=== PATIENT | female | born 1955 | race Caucasian/White ===

== ENCOUNTER 2017-04-24 10:31 | Day surgery (SDC) | payer BC ==
[2017-04-16 17:13] VITALS: BMI 27.3
[2017-04-24] MEDS ORDERED: BUPIVACAINE HCL/PF 0.5% (5MG/ML) 10 ML VIAL ONE (12:10)
[2017-04-24] MEDS ORDERED: LIDOCAINE HCL 1%, 10 MG/ML (20ML VIAL) ONE (12:10)
[2017-04-24] MEDS ORDERED: MIDAZOLAM HCL 2 MG/2 ML SINGLE DOSE VIAL ONE ×3 (12:12→12:39)
[2017-04-24] MEDS ORDERED: DEXAMETHASONE SOD PHOSPHATE 4 MG/1 ML VIAL ONE (12:32)
[2017-04-24] MEDS ORDERED: fentaNYL CITRATE 250 MCG/5 ML VIAL ONE (12:32)
[2017-04-24] MEDS ORDERED: ONDANSETRON 4 MG/2 ML VIAL ONE (12:32)
[2017-04-24] MEDS ORDERED: PROPOFOL 20 ML ONE ×2 (12:48→12:56)
[2017-04-24] MEDS ORDERED: SUCCINYLCHOLINE CHLORIDE 200 MG/10 ML VIAL ONE (12:48)
[2017-04-24] MEDS ORDERED: oxyCODONE HCL 5 MG TABLET PO PRN ×2 (13:21)
[2017-04-24] MEDS ORDERED: ONDANSETRON 4 MG/2 ML VIAL IVPUSH PRN (13:21)
[2017-04-24] MEDS ORDERED: LACTATED RINGERS SOLUTION 1,000 ML IV SCH (13:30)
[2017-04-24 14:57] VITALS: TEMP 97.9
[2017-04-24 15:47] VITALS: BP 124/79; PULSE 74
--- NOTE | 2017-04-26 07:19 | OP ---
DATE OF OPERATION: 04/24/2017 SURGEON: Nas Becerril DPM FIELD WORKER: Dr. Lisa Francis PREOPERATIVE DIAGNOSIS: Right foot painful bunion deformity. PROCEDURE: Right foot cheilectomy, bunionectomy procedure. ANESTHESIA: MAC and local. HEMOSTASIS: Pneumatic ankle tourniquet 250 mmHg for 45 minutes. ESTIMATED BLOOD LOSS: 5 mL. MATERIALS: 3-0 Vicryl, 4-0 Vicryl, 4-0 nylon. INJECTABLES: Preoperative: 16 mL of 1:1 mixture of lidocaine 1% plain and 0.5% Marcaine plain. Postoperative: 5 mL of 0.5% Marcaine and 1 mL of 4 mg dexamethasone. CONDITION: Stable. COMPLICATIONS: None. PROCEDURE: The patient was brought to the operating room and placed supine on operating room table. After adequate IV sedation and local infiltrative block was administered to the right foot utilizing 1:1 mixture of 1% lidocaine plain and 0.5% Marcaine plain with a total of 16 mL used. The right foot was then prepped, draped in the usual aseptic manner. Upon exsanguination of right foot, the Esmarch bandage was then placed with padding at the ankle. The pneumatic ankle tourniquet was inflated to 250 mmHg. Surgery began in the following manner: Attention was directed to the dorsal aspect of 1st metatarsophalangeal joint of the right foot, where a linear incision was made from the base of the proximal phalanx of the right hallux to the midshaft to the 1st metatarsal using blade number 15 of approximately 4 cm in length. The incision was deepened through subcutaneous tissue using sharp and blunt dissection. Care was taken to identify and retract all vital neural and vascular structures. Next, using blade number 15, a linear capsulotomy was performed at the dorsal aspect of 1st metatarsophalangeal joint. The periosteal and capsular structures were then carefully dissected free of the osseous attachment and reflected dorsally and plantarly, exposing the head of the 1st metatarsal and dorsal eminence visualized. The head of the metatarsal was hypertrophied significantly on dorsal aspect; however, the articular surface of the joint seemed well intact and healthy. Next, utilizing sagittal bone saw, the dorsal and medial prominences were resected and pulled from the operating table. Attention directed to the dorsal aspect of the 1st metatarsal head, where the dorsal eminence was resected using sagittal bone saw, and rotatory bur was then used to smoothen the surgical site at dorsal and medial aspects of metatarsal head. At this time, the range of motion of the 1st metatarsophalangeal joint assessed and significant improvement noted. At this time, the capsular structures were reapproximated using 3-0 Vicryl suture and rest of capsular structures were closed in a buried suture technique, and the subcutaneous layers were reapproximated using 3-0 Vicryl suture. The skin was reapproximated with a 4-0 nylon interruped horizontal mattress sutures. After completion of procedure, 4 mL of 0.5% Marcaine and 1 mL of 4 mg dexamethasone was infiltrated about the incision site. The incision was dressed with Adaptic and covered with sterile dressing of Xeroform, 4 x 4 surgical gauze , Bandar and Sy wrap. The pneumatic ankle tourniquet was then deflated, and prompt hyperemic response was noted to all digits of the right foot. The patient tolerated the procedure well and anesthesia well, and was transferred to the PACU and recovery room with all neurovascular structures intact to the right foot. Attending was present during entire time of surgery. VU GUAJARDO/[id number] SUSAN
--- NOTE | 2017-04-29 15:36 | PATH ---
Surgical Pathology Report Patient Name: SHO WALTERS [facility]. Rec. #: [id number] /Age/Gender: 1955 (Age: 62) / F Account: [id number] Location: [facility] AMBULATORY Taken: 04/24/2017 Received: 04/24/2017 Reported: 04/29/2017 Physicians: Nsa Becerril Specimen(s) Received BONE FIRST METATARSAL HEAD Clinical History Hallux rigidus right first MTP joint Final Diagnosis BONE, FIRST METATARSAL HEAD, EXCISION: CARTILAGE-CAPPED BONE WITH DEGENERATIVE CHANGES OF OVERLYING CARTILAGE. Electronically Signed Liss Sierra M.D. Gross Description Received in formalin labeled "bone first metatarsal head," is a 2.8 x 2.2 x 0.6 cm aggregate of plascencia-yellow bone fragments. [employer] sections are submitted in one cassette, following decalcification. /04/25/2017 saudi04/25/2017
== END 2017-04-24 15:53 | disposition home or self-care (01) ==
LOC: FASU 10:31
PROVIDERS: ATTEND Podiatrist
PROC: 0QBN0ZZ Excision of Right Metatarsal, Open Approach (ICD-10-PCS; principal; 2017-04-24 13:04)
DX: M20.21 Hallux rigidus, right foot (principal)
CPT/HCPCS: 73630-TC-RT; 88304-TC; 88311-TC; 94760

== ENCOUNTER → 2020-06-20 | Day surgery (SDC) | payer OTHER, BC | END | disposition home or self-care (01) | LOC: JRADIR 10:20 | PROVIDERS: ATTEND Internal Medicine Endocrinology, Diabetes & Metabolism | PROC: 0G9G3ZX Drainage of Left Thyroid Gland Lobe, Percutaneous Approach, Diagnostic (ICD-10-PCS; principal; 2020-06-20) | PROC: BG44ZZZ Ultrasonography of Thyroid Gland (ICD-10-PCS; 2020-06-20) | DX: E04.1 Nontoxic single thyroid nodule (principal) | CPT/HCPCS: 76942; 88173; 88305-TC ==

== ENCOUNTER 2020-08-24 17:23 | Emergency (ER) | payer OTHER, BC ==
[2020-08-24 17:46] VITALS: BP 126/64; PULSE 101; TEMP 98.4; BMI 32.1
[2020-08-24 18:13] LABS: BASO % 0.8 % (0-2.0); EOS % 1.9 % (0-4.5); HEMATOCRIT 44.5 % (32.4-45.2); HEMOGLOBIN 14.8 GM/dl (10.7-15.3); LYMPH % 30.1 % (8-40); MCH 30.1 pg (25.7-33.7); MCHC 33.2 g/dl (32.0-36.0); MEAN CELL VOLUME 90.5 fl (80-96); MEAN PLT VOLUME 9.6 fl (7.5-11.1); MONO % 9.4 % (3.8-10.2); NEUT % 57.8 % (42.8-82.8); PLATELET COUNT 276 K/MM3 (134-434); RBC 4.92 M/mm3 (3.60-5.2); RDW 11.6 % (11.6-15.6); WHITE BLOOD COUNT 7.5 K/mm3 (4.0-10.8)
[2020-08-24 18:40] LABS: ALBUMIN 4.6 g/dl (3.4-5.0); CALCIUM 9.7 mg/dl (8.5-10); CREATININE 0.5 mg/dl (0.55-1.3); POTASSIUM 4.1 mmol/L (3.5-5.1); TOT PROT 7.3 g/dl (6.4-8.2)
== END 2020-08-24 20:08 | disposition home or self-care (01) ==
LOC: FER 17:23
DX: R06.00 Dyspnea, unspecified (principal)
CPT/HCPCS: 36415; 71045-TC-FY; 80053; 82550; 84484; 85025; 85379; 93005; 99285-25; C9803; U0003

== ENCOUNTER → 2021-06-08 | Day surgery (SDC) | payer OTHER, BC | END | disposition home or self-care (01) | LOC: FMAMMOTONE 08:35 | PROVIDERS: ATTEND Internal Medicine Endocrinology, Diabetes & Metabolism | PROC: 0HBT3ZX Excision of Right Breast, Percutaneous Approach, Diagnostic (ICD-10-PCS; principal; 2021-06-08) | DX: N60.91 Unspecified benign mammary dysplasia of right breast (principal); N64.89 Other specified disorders of breast | CPT/HCPCS: 19081; 76098-TC-FY; 87899; 88305-TC; A4648 ==

== ENCOUNTER → 2021-07-13 | Day surgery (SDC) | payer OTHER, BC | END | disposition home or self-care (01) | LOC: FMAMMOTONE 13:59 | PROVIDERS: ATTEND Surgery Surgical Oncology | PROC: 0HBT3ZX Excision of Right Breast, Percutaneous Approach, Diagnostic (ICD-10-PCS; principal; 2021-07-13) | DX: D05.11 Intraductal carcinoma in situ of right breast (principal); N64.1 Fat necrosis of breast; N64.89 Other specified disorders of breast; R92.0 Mammographic microcalcification found on diagnostic imaging of breast | CPT/HCPCS: 19081; 76098-TC-FY; 87899; 88305-TC; 88341-TC; 88342-TC; A4648 ==